=== PATIENT | female | born 1950 | race Caucasian/White ===

== ENCOUNTER 2020-03-25 02:00 | Outpatient (CLI) | payer MEDICARE, BC, SELFPAY ==
[2020-03-25 10:30] LABS: BUN 13 mg/dL (7-18); CREATININE 0.77 mg/dL (0.55-1.02); Calcium 9.3 mg/dL (8.5-10.1); Calculated LDL 167 mg/dL (<100); Chloride 102 mmol/L (98-107); Cholesterol 266 mg/dL (<200); Glucose 86 mg/dL (74-106); HDL Cholesterol 89 mg/dL (40-60); Potassium 4.1 mmol/L (3.5-5.1); Sodium 141 mmol/L (136-145); TSH 1.59 uIU/mL (0.36-3.74); Triglyceride 54 mg/dL (<150)
== END 2020-03-25 02:20 ==
PROVIDERS: PCP Internal Medicine; Visit Provider Internal Medicine
DX: Z00.00 Encounter for general adult medical examination without abnormal findings (principal); Z13.1 Encounter for screening for diabetes mellitus; R79.89 Other specified abnormal findings of blood chemistry; R53.83 Other fatigue
CPT/HCPCS: 36415; 80048; 80061; 84443

== ENCOUNTER 2020-04-25 02:25 | Outpatient (CLI) | payer MEDICARE, BC, SELFPAY ==
--- NOTE | 2020-04-25 07:30 | DI.DEXA_ITS ---
EXAM: XR DEXA BONE DENSITY W/WO RG CLINICAL HISTORY: screening for osteoporosis IN POSTMENOPAUSAL WOMAN,Z78.0,Z00.00,PREVENTIVE TECHNIQUE: COMPARISON: No exams were available for comparison FINDINGS: DEXA scan was performed according to the usual protocol. Lumbar spine scanning shows T-score -2.1. Left hip scanning shows T-score -1.6 with left femoral neck T-score -1.4. Left forearm scanning shows T-score -1.5. IMPRESSION: Findings consistent with osteopenia according to the WHO criteria. The lateral vertebral scanogram s hows no evidence of a vertebral compression fracture. RADIATION DOSE DELIVERED: Total DLP
== END 2020-04-25 02:45 ==
PROVIDERS: PCP Internal Medicine; Visit Provider Internal Medicine
DX: Z78.0 Asymptomatic menopausal state (principal); M85.88 Other specified disorders of bone density and structure, other site; M85.832 Other specified disorders of bone density and structure, left forearm
CPT/HCPCS: 77080

== ENCOUNTER 2021-08-21 03:36 | Outpatient (CLI) | payer MEDICARE, BC, SELFPAY ==
[2021-08-21 10:35] LABS: Calculated LDL 159 mg/dL (<100); Cholesterol 266 mg/dL (<200); HDL Cholesterol 96 mg/dL (40-60); Triglyceride 58 mg/dL (<150)
== END 2021-08-21 03:37 | disposition home or self-care (01) ==
PROVIDERS: PCP Internal Medicine; Visit Provider Internal Medicine
DX: E78.00 Pure hypercholesterolemia, unspecified (principal)
CPT/HCPCS: 36415; 80061

== ENCOUNTER 2022-12-30 00:44 | Outpatient (CLI) | payer MEDICARE, BC, SELFPAY ==
--- NOTE | 2022-12-30 08:00 | DI.RAD_ITS ---
Exam(s) XR KNEE RT 3V AP,LAT,HOPE EXAM: XR KNEE RT 3V AP,LAT,HOPE CLINICAL HISTORY: assess degeneration, rt knee pain, m25.561. TECHNIQUE: 2D digital imaging was performed of the right knee. Three views obtained. AP, lateral an d PA tunnel views were obtained. COMPARISON: No priors for comparison. FINDINGS: BONES: No acute fracture is present. No bony destructive lesion is seen. JOINTS: There is marked narrowing of the patellofemoral joint. Periarticular spurring is seen in the femoral tibial joints. No joint effusion is seen. SOFT TISSUE: Normal. IMPRESSION: Moderately severe degenerative changes of the right knee. DATA REPOSITORY: RADIATION DOSE DELIVERED:
== END 2022-12-30 01:04 ==
PROVIDERS: PCP Nurse Practitioner Adult Health; Visit Provider Nurse Practitioner Adult Health
DX: M25.561 Pain in right knee (principal); M17.11 Unilateral primary osteoarthritis, right knee
CPT/HCPCS: 73562

== ENCOUNTER 2023-08-18 04:01 | Outpatient (CLI) | payer MEDICARE, BC, SELFPAY ==
[2023-08-18 08:58] LABS: Anion Gap 5.3 mmol/L (3-11); BUN 15 mg/dL (7-18); CO2 31.7 mmol/L (21.0-32.0); CREATININE 0.8 mg/dL (0.55-1.02); Calcium 9.2 mg/dL (8.5-10.1); Calculated LDL 176 mg/dL (<100); Chloride 100 mmol/L (98-107); Cholesterol 284 mg/dL (<200); Estimated GFR 78.72 (mL/min/1.73m2); Glucose 97 mg/dL (74-106); HDL Cholesterol 96 mg/dL (40-60); Potassium 3.6 mmol/L (3.5-5.1); Sodium 137 mmol/L (136-145); Triglyceride 61 mg/dL (<150)
[2023-08-18 09:19] LABS: Vitamin D 25 Total 24.2 ng/mL (30-100)
== END 2023-08-18 04:02 | disposition home or self-care (01) ==
LOC: LBO 04:01
PROVIDERS: PCP Nurse Practitioner Adult Health; Referring Provider Nurse Practitioner Adult Health; Visit Provider Nurse Practitioner Adult Health
DX: M85.88 Other specified disorders of bone density and structure, other site (principal); Z13.1 Encounter for screening for diabetes mellitus; Z13.220 Encounter for screening for lipoid disorders
CPT/HCPCS: 36415; 80048; 80061; 82306